=== PATIENT | male | born 1965 | race Caucasian/White ===

== ENCOUNTER 2022-05-28 10:40 | Emergency (ER) | payer OTHER, SELFPAY ==
[2022-05-28 11:21] VITALS: BP 165/88; PULSE 88; RESP 20; TEMP 36.2; O2SAT 98
--- NOTE | 2022-05-28 12:22 | ED.SKABFB ---
HPI - Skin/Abscess/Foreign Bdy General Chief complaint: Skin/Abscess/Foreign Body Stated complaint: abcess to buttocks Time Seen by Provider: 05/28/22 11:57 History of Present Illness HPI narrative: 56-year-old male presents the emergency room for evaluation of a painful lump to his right gluteal region. Patient states he feels like it might be an abscess and has been present for about 4 days. Related Data Allergies Allergy/AdvReac Type Severity Reaction Status Date / Time No Known Allergies Allergy Verified 05/28/22 11:57 Review of Systems Review of Systems: CONSTITUTIONAL: Denies fever, chills, or sweats. EYES: Denies visual changes, redness, or discharge. ENT: Denies rhinorrhea, congestion, sore throat, or otalgia. CARDIOVASCULAR: Denies chest pain, palpitations, or edema. RESPIRATORY: Denies cough or dyspnea. GASTROINTESTINAL: Denies abdominal pain, nausea, vomiting, or diarrhea. GENITOURINARY: Denies dysuria or hematuria. SKIN: Reports painful mass to her right gluteal region MUSCULOSKELETAL: Denies back pain, joint pain, or myalgia. NEUROLOGIC: Denies headache, numbness, dizziness, or weakness. PSYCHIATRIC: Denies anxiety or depression. Exam Narrative: GENERAL: Well-appearing, well-nourished, no physical limitations, and in no acute distress. HEAD: Normocephalic, atraumatic. EYES: Conjunctivae normal, PERRLA and EOMI. CHEST: Clear to auscultation. No respiratory distress. No wheezes rales or rhonchi. No tenderness. HEART: Regular rate and rhythm. No murmur heard. Normal peripheral pulses. BACK: No CVA tenderness; No cervical/thoracic/lumbar tenderness, step-offs, bony abnormality; FROM EXTREMITIES: Normal range of motion. No edema. No clubbing or cyanosis SKIN: Right glute: 3 cm fluctuant mass with surrounding erythema NEURO: No focal deficits. Alert and oriented x3. MAEW. CN's II-XI intact bilaterally, normal gait PSYCH: Cooperative. Normal mood and affect. Course Vital Signs Vital signs: Vital Signs Temperature 36.2 C L 05/28/22 11:21 Pulse Rate 88 05/28/22 11:21 Respiratory Rate 20 05/28/22 11:21 Blood Pressure 165/88 H 05/28/22 11:21 Pulse Oximetry 98 05/28/22 11:21 Oxygen Delivery Room Air 05/28/22 11:21 Temperature 36.2 C L 05/28/22 11:21 Pulse Rate 88 05/28/22 11:21 Respiratory Rate 20 05/28/22 11:21 Blood Pressure 165/88 H 05/28/22 11:21 Pulse Oximetry 98 05/28/22 11:21 Oxygen Delivery Room Air 05/28/22 11:21 Procedures Abscess I/D mike-rectal: Date of Incision: 05/28/22 Time of Incision: 12:49 Side (if applicable): right Sedation/analgesia: none Local Anesthetic: lidocaine 1% and with epi Amount of anesthesia used (mL): 5 Technique: incised with #11 blade Amount of fluid expressed (mL): 15 Irrigation: Yes Packing used?: iodoform I&D Results: Pus and Blood Discharge Plan Discharge Clinical Impression: Abscess of skin or subcutaneous tissue Patient Disposition: Home, Self-Care Condition: Stable Instructions: Antibiotic Form, Abscess (ED) Additional Instructions: Continue taking your cephalexin until completed. Follow-up with your primary care physician in 2 days to have your packing removed. May take Tylenol and ibuprofen as needed for discomfort. Follow-up/Referrals: PHYSICIAN,CEMENT TILE MAKER [Primary Care Provider] - Time of Disposition: 12:50
[2022-05-28 12:59] VITALS: BP 144/99; PULSE 90; RESP 18; O2SAT 99
== END 2022-05-28 13:00 | disposition home or self-care (01) ==
PROVIDERS: Emergency Provider Nurse Practitioner Family
DX: L02.31 Cutaneous abscess of buttock (principal)
CPT/HCPCS: 10061; 99282

== ENCOUNTER 2023-01-13 07:19 | Day surgery (SDC) | payer OTHER, SELFPAY ==
[2022-10-31 14:41] VITALS: BMI 34.0
[2023-01-01 14:45] VITALS: BMI 34.0
[2023-01-13 07:45] VITALS: BP 154/105; PULSE 85; RESP 16; TEMP 36.6; O2SAT 97
--- NOTE | 2023-01-13 08:20 | P.PNAN_ITS ---
Anes - Initial Pre Proc Eval Procedure: Operation Date: 01/13/23 09:00 Proposed Procedures p Screening Colonoscopy - Luis Felipe Kennedy MD Date/Time: 01/13/23 08:20 Surgeon: Luis Felipe Kennedy MD Pre Op Diagnosis: Neoplasm Screening Patient Data Age: 57 Gender: M Height: 1.85 m Weight: 116.7 kg Allergies Allergy/AdvReac Type Severity Reaction Status Date / Time No Known Allergies Allergy Verified 01/13/23 07:52 Home Medications Medication Instructions Recorded Confirmed Type allopurinol 100 mg tablet 100 mg PO DAILY #90 tabs 10/21/22 01/13/23 Rx alendronate 70 mg-cholecalciferol 1 tablet PO WEEKLY 01/01/23 01/13/23 History (vitamin D3) 2,800 unit tablet multivit with minerals-iron 18 1 tablet PO DAILY 01/01/23 01/13/23 History mg-folic ac 400 mcg-vit K 25 mcg tablet (Adults Multivitamin) omeprazole 20 mg capsule,delayed 20 mg PO DAILY 01/01/23 01/13/23 History release wheat dextrin 3 gram/3.5 gram oral 1 packet PO DAILY 01/01/23 01/13/23 History powder packet (Benefiber Clear Sugar Free(dextrin)) Patient hx anesthesia problems: none Family hx anesthesia problems: none Results Review: All pre-operative results and documents have been reviewed as part of the pre- operative evaluation. [facility] Past Medical History Medical History Gout Surgical History Surgical History Hx of appendectomy Family History Family History Father Cerebrovascular accident Sibling Rheumatoid arthritis Social History Social History Smoking status: Never smoker Tobacco type: smokeless tobacco Smokeless tobacco user: chewing tobacco Alcohol intake: current Alcohol use details: socially Substance use: never Substance use type: does not use Lack of Transportation: No Lack of Food: Never True Current Housing: I Have Housing Concerned About Future Housing: No Difficulty Paying Gas/Electric Bills: No Difficulty Paying for Meds: No Currently Unemployed: No Education: High School Diploma/GED Difficulty w/ Childcare or Family Care: No Living arrangements: alone Spiritual care concerns: No Anes - Eval Final PreProcedure Day of Procedure 01/13/23 08:20 Patient weight: obese Heart: regular rate and rhythm Lungs: clear to auscultation Airway: Mallampati scale class II Neurological: alert and oriented Last oral intake: >/= 8 hours ASA classification: III Emergent: no Anesthetic plan: proceed Results Review: All pre-operative results and documents have been reviewed as part of the pre- operative evaluation. Informed Consent: The patient's anesthetic plan and its attendant risks and benefits were discussed with the patient/family/POA. Questions were solicited and answers provided to the satisfaction of the patient/family/POA.
[2023-01-13] MEDS: LACTATED RINGERS 1,000 ML 150 ML IV CONT (08:31)
--- NOTE | 2023-01-13 08:45 | PM.HPGS ---
History of Present Illness History of Present Illness Consent: Risks, benefits, and alternatives have been discussed and questions answered. Patient agrees to proceed with procedure. Chief complaint: Neoplasm Screening Narrative: Sergey Talley is a 57 year old male here for first screening colonoscopy Review of Systems Constitutional: Constitutional: Denies headache(s) and Denies weakness Eyes: Eyes: Denies blurry vision ENT: Reports Normal hearing present, Denies headache(s) and Denies neck pain Cardiovascular: Cardiovascular: Denies chest pain and Denies dyspnea Respiratory: Respiratory: Denies dyspnea Gastrointestinal: Gastrointestinal: Reports no additional gastrointestinal complaints Genitourinary: Genitourinary: Denies dysuria Musculoskeletal: Musculoskeletal: Denies neck pain Integumentary/Breasts: Skin/Breast: Denies dry skin Neurologic: Reports Normal hearing present, Denies headache(s) and Denies weakness Psychiatric: Psychiatric: Denies anxiety Endocrine: Endocrine: Denies change in body appearance Hematologic/Lymphatic: Hematologic/Lymphatic: Denies easy bleeding Allergic/Immunologic: Allergic/Immunologic: Denies urticaria PMFSH Past Medical History Medical History Gout Surgical History Surgical History Hx of appendectomy Family History Family History Father Cerebrovascular accident Sibling Rheumatoid arthritis Social History Social History Smoking status: Never smoker Tobacco type: smokeless tobacco Smokeless tobacco user: chewing tobacco Alcohol intake: current Alcohol use details: socially Substance use: never Substance use type: does not use Lack of Transportation: No Lack of Food: Never True Current Housing: I Have Housing Concerned About Future Housing: No Difficulty Paying Gas/Electric Bills: No Difficulty Paying for Meds: No Currently Unemployed: No Education: High School Diploma/GED Difficulty w/ Childcare or Family Care: No Living arrangements: alone Spiritual care concerns: No Meds Home Medications and Allergies Home Medications Medication Instructions Recorded Confirmed Type allopurinol 100 mg tablet 100 mg PO DAILY #90 tabs 10/21/22 01/13/23 Rx alendronate 70 mg-cholecalciferol 1 tablet PO WEEKLY 01/01/23 01/13/23 History (vitamin D3) 2,800 unit tablet multivit with minerals-iron 18 1 tablet PO DAILY 01/01/23 01/13/23 History mg-folic ac 400 mcg-vit K 25 mcg tablet (Adults Multivitamin) omeprazole 20 mg capsule,delayed 20 mg PO DAILY 01/01/23 01/13/23 History release wheat dextrin 3 gram/3.5 gram oral 1 packet PO DAILY 01/01/23 01/13/23 History powder packet (Benefiber Clear Sugar Free(dextrin)) Allergies Allergy/AdvReac Type Severity Reaction Status Date / Time No Known Allergies Allergy Verified 01/13/23 07:52 Vital Signs Vital Signs - 24 hr 01/13/23 07:45 Temperature 97.8 F Pulse Rate 85 Respiratory Rate 16 Blood Pressure 154/105 H Pulse Oximetry 97 Oxygen Delivery Room Air Exam Const: General: comfortable and no acute distress HENMT: Face/Nose/Sinus: Normal nares present Eyes: General: appearance normal, both eyes and all related structures Neck: Neck: no JVD Resp: Auscultation: clear to auscultation bilaterally Cardio: Rate: regular rate Rhythm: regular rhythm GI: Inspection: non-distended GI Palp: Yes Soft to palpation Skin: General skin exam: normal color Neuro: General: gait normal Speech: normal speech Extrem: General: normal to inspection Psych: Mental Status: mental status grossly normal Assessment and Plan Assessment and plan (1) Colon cancer screening: Code(s): Z12.11 - Encounter for screening for maligna
[2023-01-13 09:03] VITALS: BP 123/86; PULSE 92; RESP 20; O2SAT 96
--- NOTE | 2023-01-13 09:11 | WPDANESPN ---
Anes - Prog Note Post-Op Date/Time: 01/13/23 09:11 Cardiovascular status: normal Respiratory status: normal Airway patency: baseline Mental status: baseline Post-Op hydration status: normal Vital Signs: Last Vital Signs Temp 36.6 C 01/13/23 07:45 Pulse 85 01/13/23 07:45 Resp 16 01/13/23 07:45 BP 154/105 H 01/13/23 07:45 Pulse Ox 97 01/13/23 07:45 O2 Del Method Room Air 01/13/23 07:45 Pain Score (VAS): 0/10 I/O: Intake & Output 01/12/23 01/13/23 01/13/23 23:59 07:59 15:59 Intake Total 400 Balance 400 Patient Feedback: Patient satisfied with anesthetic care.
[2023-01-13 09:13] VITALS: BP 129/89; PULSE 81; RESP 20; O2SAT 95
[2023-01-13 09:23] VITALS: BP 128/84; PULSE 72; RESP 20; O2SAT 98
== END 2023-01-13 09:38 | disposition home or self-care (01) ==
PROVIDERS: PCP Internal Medicine; Visit Provider Internal Medicine Gastroenterology
PROC: 0DJD8ZZ Inspection of Lower Intestinal Tract, Via Natural or Artificial Opening Endoscopic (ICD-10-PCS; CPT 45378; principal; 2023-01-13 09:00)
DX: Z12.11 Encounter for screening for malignant neoplasm of colon (principal)
CPT/HCPCS: 45385

== ENCOUNTER 2023-01-13 08:25 | Outpatient (NON) | payer OTHER, SELFPAY | END 2023-01-13 08:26 | disposition home or self-care (01) | LOC: ANHLAB 01-14 08:27 | PROVIDERS: PCP Internal Medicine; Visit Provider Internal Medicine Gastroenterology | DX: Z12.11 Encounter for screening for malignant neoplasm of colon (principal); D12.4 Benign neoplasm of descending colon | CPT/HCPCS: 88305 ==

== ENCOUNTER 2023-10-12 15:42 | Emergency (ER) | payer OTHER, SELFPAY ==
--- NOTE | ~2023-10-12 | XR_ITS ---
Right Shoulder Technique: AP and scapular Y views were obtained. Clinical History: Pain Findings: No fracture or dislocation is seen. Osseous alignment is anatomic. The glenohumeral and acr omioclavicular joint spaces are preserved. Soft tissues are unremarkable. Impression: Unremarkable right shoulder radiographs. Reviewed, dictated and finalized at [facility]. [employer] Impression: Unremarkable right shoulder radiographs.
[2023-10-12 15:43] VITALS: BP 176/90; PULSE 95; RESP 18; TEMP 36.8; O2SAT 98
--- NOTE | 2023-10-12 15:51 | PC.NURSE ---
Pt taken to xray at this time
--- NOTE | 2023-10-12 15:59 | ED.UPPEXIN ---
HPI - Extremity Injury (Upper) General Chief Complaint: Extremity Injury, Upper Stated Complaint: SHOULDER PAIN Time Seen by Provider: 10/12/23 15:46 History of Present Illness HPI narrative: patient presenting with right shoulder pain after he slipped and fell on some ice today. Able to move his arm, no numbness or tingling anywhere. no injury anywhere else. He is right handed. Related Data Home Medications Medication Instructions Recorded Confirmed alendronate 70 mg-cholecalciferol 1 tablet PO WEEKLY 01/01/23 01/13/23 (vitamin D3) 2,800 unit tablet multivit with minerals-iron 18 1 tablet PO DAILY 01/01/23 01/13/23 mg-folic ac 400 mcg-vit K 25 mcg tablet (Adults Multivitamin) omeprazole 20 mg capsule,delayed 20 mg PO DAILY 01/01/23 01/13/23 release wheat dextrin 3 gram/3.5 gram oral 1 packet PO DAILY 01/01/23 01/13/23 powder packet (Benefiber Clear Sugar Free(dextrin)) Allergies Allergy/AdvReac Type Severity Reaction Status Date / Time No Known Allergies Allergy Verified 01/23/23 18:11 Review of Systems Review of Systems: CONST: No fever. HEENT: No sore throat C/V: No chest pain RESP: No cough GI: No abdominal injury : No flank injury M/S: right shoulder pain. SKIN: No rash. NEURO: [No headache or focal numbness or weakness] PSYCH: [No depression] PMFSH Past Medical History Medical History Gout Surgical History Surgical History Hx of appendectomy Family History Family History Father Cerebrovascular accident Sibling Rheumatoid arthritis Social History Social History Smoking status: Never smoker Tobacco type: smokeless tobacco Smokeless tobacco user: chewing tobacco Alcohol intake: current Alcohol use details: socially Substance use: never Substance use type: does not use Lack of Transportation: No Lack of Food: Never True Current Housing: I Have Housing Concerned About Future Housing: No Difficulty Paying Gas/Electric Bills: No Difficulty Paying for Meds: No Currently Unemployed: No Education: High School Diploma/GED Difficulty w/ Childcare or Family Care: No Living arrangements: alone Spiritual care concerns: No Exam Narrative: EXAMINATION OF ORGAN SYSTEMS/BODY AREAS: Constitutional: Vital signs per nursing GENERAL:[No acute distress, non-toxic appearing.] HEAD: Normal with no signs of head trauma. EYES: EOMI, conjunctiva normal ENT: Hearing grossly intact LUNGS: Nonlabored breathing. HEART: [Regular rate and rhythm], normal radial pulse ABD: [Soft], [nontender to palpation] EXT: Some tenderness to palpation anterior/lateral shoulder; some re-elicitation of pain with abduction of shoulder but otherwise normal ROM; normal ROM at elbow, wrist. SKIN: [No rashes or lesions.] NEURO: [Alert and oriented x 3. No gross focal sensory or strength deficits.] PSYCH: Normal affect Course Vital Signs Vital signs: Vital Signs Temperature 98.2 F 10/12/23 15:43 Pulse Rate 95 10/12/23 15:43 Respiratory Rate 18 10/12/23 15:43 Blood Pressure 176/90 H 10/12/23 15:43 Pulse Oximetry 98 10/12/23 15:43 Temperature 98.2 F 10/12/23 15:43 Pulse Rate 95 10/12/23 15:43 Respiratory Rate 18 10/12/23 15:43 Blood Pressure 176/90 H 10/12/23 15:43 Pulse Oximetry 98 10/12/23 15:43 MDM - Extremity Injury (Upper) MDM Narrative Medical decision making narrative: 57-year-old male presenting here with right shoulder pain after tripping and falling and landing on it, he is neurovascularly intact, has some mild tenderness but no obvious deformity on exam, normal range of motion. Shoulder x-ray obtained and per my own independent interpretation do not see any obvious dislocation
== END 2023-10-12 16:33 | disposition home or self-care (01) ==
LOC: ANHED 16:15
PROVIDERS: Emergency Provider Emergency Medicine; PCP Internal Medicine
DX: S49.91XA Unspecified injury of right shoulder and upper arm, initial encounter (principal); M10.9 Gout, unspecified; W00.0XXA Fall on same level due to ice and snow, initial encounter
CPT/HCPCS: 73030; 99283